=== PATIENT | female | born 1980 | race Caucasian/White ===

== ENCOUNTER 2016-12-08 11:14 | Inpatient (IN) | payer MEDICAID ==
[~2016-12-08] VITALS: Ht 165.1 cm; Wt 66.5 kg
--- NOTE | ~2016-12-08 | DS ---
PATIENT'S NAME: JAE LUU [facility] AGE: 36 Y [address] ROOM: [place] [address] LOCATION: GO ADMIT DATE: 12/08/2016 Discharge Summary DISCHARGE DATE: 12/10/2016 FAMILY PHYSICIAN: Jasen Reyna MD ATTENDING PHYSICIAN: Jasen Reyna FINAL/PRIMARY/DISCHARGE DIAGNOSES: Spontaneous vaginal delivery with artificial rupture of membranes. ADDITIONAL DIAGNOSES: 1. G7, P3-0-4-3. 2. Maternal tobacco abuse. 3. Bipolar disorder. PROCEDURE: Spontaneous vaginal delivery. COMPLICATIONS: None. IMAGING: None. LABORATORY DATA: Unremarkable. DISCHARGE EXAM: GENERAL: Pleasant, interactive adult female, in no acute distress. HEAD: Normocephalic and atraumatic. EYES: Conjunctivae clear. Sclerae white. ENT: Poor dentition is present as well as mucous membranes moist. HEART: Regular rate and rhythm without murmurs. LUNGS: Clear to auscultation bilaterally. ABDOMEN: Soft, nontender, nondistended, view -2. EXTREMITIES: Warm and well perfused. No clubbing, cyanosis, or edema. BRIEF HOSPITAL COURSE: Ms. Luu is a 36-year-old, G7, now P3-0-4-3 who presented as an admission for spontaneous vaginal delivery. She presented to [facility] with bloody show and was in spontaneous labor and subsequently was transferred to the labor and delivery unit at [facility] for further evaluation and management. Upon reaching the floor, the patient ended up with vaginal delivery of viable female infant. Her postoperative course was overall unremarkable. However, the patient does have a history of bipolar disorder and previously had been on Abilify, Risperdal and SSRI. She is inquiring about options to get back on medications. She is also wanting to quit smoking. I discussed with the patient. I will look into some options that would be PATIENT'S NAME: JAE LUU [facility] AGE: 36 Y [address] ROOM: [place] [address] LOCATION: [facility] ADMIT DATE: 12/08/2016 Discharge Summary DISCHARGE DATE: 12/10/2016 FAMILY PHYSICIAN: Jasen Reyna MD ATTENDING PHYSICIAN: Jasen Reyna compatible with . We definitely do SSRI but a mood stabilizer may be of some concern. We will look into that and follow up with the patient in 1 day to further discuss regarding her tobacco abuse. I will discuss some options with the patient tomorrow in clinic. Really best option during would be a nicotine replacement which we could definitely do. The patient may also try to do cold turkey. DISCHARGE RECOMMENDATIONS: 1. Followup with Dr. Diallo at [facility] in 1 day. 2. Follow up with Dr. Reyna for adjustment of any mood medications that may be started. PROGNOSIS: The patient discharge prognosis is good. CONDITION: Stable. MD CHRIS MARTINEZ/fletcher /[id number] d: 12/11/16 0324 t: 12/20/16 0843, DISCHARGE SUMMARY
--- NOTE | ~2016-12-08 | OR ---
PATIENT'S NAME: JAE ALVES [facility] AGE: 36 Y [address] ROOM: [id number] [place], [place] [address] LOCATION: GOBS ADMIT DATE: 12/08/2016 OR/Procedure Report DISCHARGE DATE: FAMILY PHYSICIAN: Jasen Reyna MD ATTENDING PHYSICIAN: Jasen Reyna SURGEON: Kye Diallo MD BARREL INSPECTOR TIGHT: None. DATE OF PROCEDURE: 12/08/2016 PREOPERATIVE DIAGNOSIS: A 38 and 3/7th weeks' intrauterine , in active labor along with severe tobacco abuse and history of bipolar disorder, not currently medicated. POSTOPERATIVE DIAGNOSES: 1. A 38 and 3/7th weeks' intrauterine , in active labor along with severe tobacco abuse. 2. Delivery of a viable female infant at 1710 hours, weighing 7 pounds 0 ounces with score of 8 at 1 minute and 9 at 5 minutes. PROCEDURE PERFORMED: Spontaneous vaginal delivery with artificial rupture of membranes. ANESTHESIA: Fentanyl x2. Last dose was over 1 hour prior to delivery. ESTIMATED BLOOD LOSS: 200 mL. INDICATIONS FOR PROCEDURE: This is a 36-year-old, G7, P2-0-4-2 presents at 38 and 3/7th weeks' gestation by LMP with the EDC of 12/19/2016 complaining of painful regular uterine contractions as well as vaginal bleeding. course was complicated by tobacco abuse. laboratory data includes blood type O positive with negative antibody screen. Rubella immune. VDRL nonreactive. Hepatitis B surface antigen negative, HIV nonreactive, and GBS negative. She presented to the [facility] around 0900 hours this morning complaining of uterine contractions, more particularly of vaginal bleeding. At that time, she was found to be 3, 50%, and -2 station. She had significant bloody show. She was sent to [facility] for further evaluation and management. Upon reaching the unit, the patient had a heart rate which was reactive and reassuring. She remained normotensive throughout the course of her labor. She continually progressed until she had artificial rupture of membranes at 1706 hours with return of clear fluid. Just prior to that patient was 9 cm with a rim on the right. vertex was at 0 station. She rapidly progressed to complete at 1708 hours and there was lot of pressure bringing the 's head vertex to the perineum. DESCRIPTION OF PROCEDURE: The patient was noted to be complete and pushing and she was already in the dorsal lithotomy position, had been prepped and PATIENT'S NAME: JAE ALVES [facility] AGE: 36 Y [address] ROOM: [address] [address] LOCATION: [facility] ADMIT DATE: 12/08/2016 OR/Procedure Report DISCHARGE DATE: FAMILY PHYSICIAN: Jasen Reyna MD ATTENDING PHYSICIAN: Jasen Reyna draped in the usual sterile fashion for a vaginal delivery. The patient was asked to push, and the head was delivered spontaneously in the OA position over an intact perineum. Nuchal cord was checked for and one was noted. I did try to reduce the nuchal cord, but was unable to do so and so the patient was then delivered through the cord. The anterior shoulder was delivered easily and posterior shoulder was closely followed. The remainder of the was easily delivered. The was noted to have spontaneous cry and spontaneous movement of all 4 extremities. Cord was cut and clamped x2 and noted to have two arteries and one vein. The infant was passed to the warmer where the nursing staff was in attendance. Cord blood was obtained at that time. The placenta was delivered via Crede at 1714 hours and the uterus was not explored. 20 units of Pitocin was placed in the IV bag to firm the uterus. Examination the cervix and vaginal vault did not reveal any lacerations. The patient did have two, very small, nonbleeding periurethral lacerations. The patient overall tolerated the procedure quite well and was recovered in Labor and Delivery with her infant. All needle and sponge counts were correct. The patient overall tolerated the procedure. The patient and baby were both doing well at the end of the procedure. KYE DIALLO MD BAB/modl /[id number] d: 12/08/16 2259 t: 12/19/16 0755, OPERATIVE SUMMARY
[~2016-12-08 11:14] MED LIST: ACETAMINOPHEN325 MG PO; PRENATAL 1+1)(P1 TAB PO
[2016-12-08] MEDS ORDERED: TUMS200 MG PO (11:49)
[2016-12-08] MEDS ORDERED: ACETAMINOPHEN325 MG PO (11:49)
[2016-12-08 12:02] LABS: BASOPHIL % 0.2 %; EOSINOPHIL # 0.1 K/uL (0.0-0.5); HEMATOCRIT 34.4 % (33.0-46.0); HEMOGLOBIN 11.8 g/dL (11.0-15.0); IMMATURE GRANULOCYTE % 0.3 %; LYMPHOCYTE # 2.3 K/uL (0.8-4.0); LYMPHOCYTE % 24.3 %; MCH 33.6 pg (27.0-34.0); MCHC 34.3 gm/dL (32.0-36.5); MONOCYTE # 0.6 K/uL (0.0-1.0); MONOCYTE % 6.6 %; MPV 9.9 fl (9.4-12.4); NEUTROPHIL # (ANC) 6.5 K/uL (1.8-7.8); NEUTROPHIL % 67.6 %; NRBC % 0 /100WBC (0-0.00); PLATELET COUNT 320 K/uL (150-450); RBC 3.51 M/uL (3.50-5.50); RDW-CV 13.1 % (11.9-14.6); WBC 9.6 K/uL (4.0-11.0)
--- NOTE | 2016-12-09 04:43 | NUR ---
VSS. Fundus firm and midline. Michele at 1930. SL to left wrist. , needs encouraged and help with baby cares.
[2016-12-09 05:27] LABS: BASOPHIL % 0.2 %; EOSINOPHIL # 0.1 K/uL (0.0-0.5); EOSINOPHIL % 0.8 %; HEMOGLOBIN 9.5 g/dL (11.0-15.0); IMMATURE GRANULOCYTE # 0.1 K/uL (0.0-0.3); IMMATURE GRANULOCYTE % 0.4 %; LYMPHOCYTE # 2.4 K/uL (0.8-4.0); LYMPHOCYTE % 17.3 %; MCH 33.7 pg (27.0-34.0); MCHC 34.5 gm/dL (32.0-36.5); MCV 97.5 fl (83.0-98.0); MONOCYTE # 1.2 K/uL (0.0-1.0); MONOCYTE % 9.1 %; MPV 9.5 fl (9.4-12.4); NEUTROPHIL # (ANC) 9.9 K/uL (1.8-7.8); NEUTROPHIL % 72.2 %; NRBC % 0 /100WBC (0-0.00); PLATELET COUNT 257 K/uL (150-450); RBC 2.82 M/uL (3.50-5.50); RDW-CV 12.9 % (11.9-14.6); WBC 13.7 K/uL (4.0-11.0)
[2016-12-09 05:38] LABS: HEMATOCRIT 27.5 % (33.0-46.0)
--- NOTE | 2016-12-09 15:40 | NUR ---
Last VS: T:97.8 P:72 R: 14 BP: 98/59 Pain ratin-2 Last pain med: 1001 Medicated at: Effective: Breasts: , Nipples: breast feeds fair Fundus: firm 1 finger down Lochia: snall amount Epis/Perineum: bottom ok Voiding well: yes Significant event: . Patient gets herself up and about in room. I took her saline lock out. c/o bilateral calf pain, states feels tight. Doctor Diallo talked to her and said if her legs swelled up and got warm to touch to let a doctor know. Doctor Diallo says he thinks it is sore muscles from pushing and having her legs in struips yester.
[2016-12-10] MEDS ORDERED: SURFAK240 MG PO (09:37)
[2016-12-10] MEDS ORDERED: APNO TOP (09:37)
[2016-12-10] MEDS ORDERED: PRENATAL 1+1)(P1 TAB PO (09:38)
[2016-12-10] MEDS ORDERED: LANSINOH7 GM TOP (09:38)
[2016-12-10] MEDS ORDERED: MOTRIN800 MG PO (09:38)
--- NOTE | 2016-12-10 14:04 | NUR ---
Met with mom, her sister, and two older children at bedside today with baby Chu. Mom states she has all necessary baby items except for a diaper bag. She also is concerned she does not have any clothes to fit Chu or small enough diapers. I provided her with vounchers to the [facility] to get diapers, wipes, and clothing. She will also see if they have a diaper bag. Radha and her older daughter have a counselor that they both see, Lisette with the [facility]. I also discussed with Radha the need to get Chu added onto her Medicaid plan and I encouraged her to contact Medicaid and inform them of Chu's . I discussed Post depression with Radha but she assures me that this is not a concern and she has her counselor to help her through this if it were to be an issue. No other needs or concerns. Patient and baby to discharge to home.
== END 2016-12-10 13:35 | disposition disaster alternative care site (69) | DRG 774 ==
LOC: GOBM 11:14 → GOBS 11:16
PROVIDERS: Family Medicine; ADMIT Family Medicine
DX: O67.9 Intrapartum hemorrhage, unspecified (principal); O99.343 Other mental disorders complicating pregnancy, third trimester; F31.9 Bipolar disorder, unspecified; O99.334 Smoking (tobacco) complicating childbirth; O71.82 Other specified trauma to perineum and vulva; O69.1XX0 Labor and delivery complicated by cord around neck, with compression, not applicable or unspecified; F17.200 Nicotine dependence, unspecified, uncomplicated; M79.669 Pain in unspecified lower leg; Z3A.38 38 weeks gestation of pregnancy; Z37.0 Single live birth
CPT/HCPCS: J2590; J3010; J7120